=== PATIENT | male | born 1940 | race Caucasian/White ===

== ENCOUNTER 2021-12-22 19:38 | Inpatient (IN) | payer BC, MEDICARE ==
[~2021-12-22] VITALS: Ht 185.4 cm; Wt 155.9 kg
[2021-12-22] MEDS: SODIUM CHLORIDE 0.9% 1000ML 1,000 ML IV SCH (01:15)
[~2021-12-22 19:38] MED LIST: ACTOS15 MG PO; ASPIR 8181 MG PO; ESIDRIX25 MG PO; GLIPIZIDE5 MG PO; LANTUS100 UNITS/ SQ; METFORMIN HCL500 MG PO; TUMS200 MG PO; ZESTRIL20 MG PO
[2021-12-22 20:18] LABS: BASOPHILS # (AUTO) 0.1 (0.0-0.1); BASOPHILS % 0.5 % (0.0-1.0); EOSINOPHILS # (AUTO) 0.2 (0.0-0.4); EOSINOPHILS % 1.7 % (0.0-6.0); HEMATOCRIT 34.4 % (38.2-49.6); HEMOGLOBIN 11.3 g/dL (14.0-18.0); LYMPHOCYTES # (AUTO) 1.9 (1.0-3.2); LYMPHOCYTES % 15.3 % (18.0-39.1); MEAN CORPUSCULAR HEMOGLOBIN 30.2 pg (28-32); MEAN CORPUSCULAR HGB CONC 32.8 g/dL (31-35); MONOCYTES # (AUTO) 1.1 (0.2-0.8); MONOCYTES % 8.9 % (4.4-11.3); NEUTROPHILS # (AUTO) 9.2 (2.1-6.9); NEUTROPHILS % 71.9 % (38.7-80.0); PLATELET COUNT 239 x10e3/uL (140-360); RED BLOOD COUNT 3.74 x10e6/uL (4.3-5.7); RED CELL DISTRIBUTION WIDTH 12.2 % (11.7-14.4)
[2021-12-22 20:28] LABS: INR 1.01; PROTHROMBIN TIME 14.2 seconds (11.9-14.5)
[2021-12-22 20:29] LABS: PARTIAL THROMBOPLASTIN TIME 27.4 seconds (23.8-35.5)
[2021-12-22] MEDS ORDERED: SODIUM CHLORIDE 0.9% 1000ML 1,000 ML IV ONE ×2 (20:30)
[2021-12-22] MEDS ORDERED: SODIUM CHLORIDE 0.9% 1000ML 1,000 ML IV STA ×2 (20:37)
[2021-12-22] MEDS ORDERED: SODIUM CHLORIDE 0.9% 1000ML 3,000 ML ONE (20:37)
[2021-12-22 20:44] LABS: CREATINE KINASE MB 2.4 ng/mL (0-5.0)
[2021-12-22 20:46] LABS: ALBUMIN 3.2 g/dL (3.5-5.0); ALBUMIN/GLOBULIN RATIO 1.1 (0.8-2.0); ANION GAP 17.7 mmol/L (8-16); CALCIUM 9.1 mg/dL (8.4-10.2); CREATININE, SERUM 2.4 mg/dL (0.72-1.25); POTASSIUM 4.7 mmol/L (3.5-5.1)
[2021-12-22 22:19] LABS: CLARITY,URINE CLEAR (CLEAR); COLOR,URINE YELLOW (YELLOW); KETONES,URINE NEGATIVE (NEGATIVE); LEUKOCYTE ESTERASE ,URINE NEGATIVE (NEGATIVE); NITRITE,URINE NEGATIVE (NEGATIVE); PROTEIN,URINE DIPSTICK NEGATIVE (NEGATIVE); URINE UROBILINOGEN 0.2 mg/dL (0.2 - 1)
[2021-12-22 22:26] LABS: BACTERIA,URINE FEW /HPF; EPITHELIAL CELLS,URINE FEW /LPF; RBC,URINE 0-5 /HPF (0-5)
[2021-12-22 23:22] LABS: ANION GAP 13.1 mmol/L (8-16); CALCIUM 8.1 mg/dL (8.4-10.2); CREATININE, SERUM 2.14 mg/dL (0.72-1.25); POTASSIUM 5.1 mmol/L (3.5-5.1)
[2021-12-23] VITALS (22 sets, daily range): BP systolic 61–144; BP diastolic 27–91
[2021-12-23] MEDS ORDERED: GLIPIZIDE ER5 MG PO (02:09)
[2021-12-23] MEDS ORDERED: LEVEMIR FL100 UNIT/1 SC (02:09)
[2021-12-23] MEDS ORDERED: LISINOPRIL-HCT1 EACH PO (02:09)
[2021-12-23 07:34] LABS: BASOPHILS # (AUTO) 0.1 (0.0-0.1); BASOPHILS % 0.5 % (0.0-1.0); EOSINOPHILS # (AUTO) 0.2 (0.0-0.4); EOSINOPHILS % 1.6 % (0.0-6.0); LYMPHOCYTES # (AUTO) 3.6 (1.0-3.2); MEAN CORPUSCULAR HEMOGLOBIN 30.6 pg (28-32); MEAN CORPUSCULAR HGB CONC 33.3 g/dL (31-35); MEAN CORPUSCULAR VOLUME 91.8 fL (81-99); MONOCYTES # (AUTO) 1.2 (0.2-0.8); MONOCYTES % 9.4 % (4.4-11.3); NEUTROPHILS # (AUTO) 7.9 (2.1-6.9); NEUTROPHILS % 59.6 % (38.7-80.0); PLATELET COUNT 228 x10e3/uL (140-360); RED BLOOD COUNT 2.94 x10e6/uL (4.3-5.7); RED CELL DISTRIBUTION WIDTH 12.2 % (11.7-14.4)
[2021-12-23] MEDS: SODIUM CHLORIDE 0.9% 1000ML 1,000 ML IV SCH (07:45)
[2021-12-23 08:02] LABS: ANION GAP 15.7 mmol/L (8-16); CALCIUM 8.2 mg/dL (8.4-10.2); CREATININE, SERUM 2.14 mg/dL (0.72-1.25); POTASSIUM 4.7 mmol/L (3.5-5.1)
[2021-12-23] MEDS ORDERED: ONDANSETRON HCL INJ 2MG/ML 2ML 2 MG/ML VIAL IV PRN (08:15)
[2021-12-23] MEDS ORDERED: HYDROMORPHONE 1MG/1ML INJ IV STA ×2 (09:45→09:58)
[2021-12-23] MEDS ORDERED: SODIUM CHLORIDE 0.9% 50ML 50 ML ONE (09:59)
[2021-12-23] MEDS: Pantoprazole IV 40 MG in SODIUM CHLORIDE 0.9% 50ML 50 ML IV SCH ×3 (10:00→22:44)
[2021-12-23] MEDS ORDERED: HYDROMORPHONE 1MG/1ML INJ ONE ×2 (10:03→10:12)
[2021-12-23] MEDS ORDERED: SODIUM CHLORIDE 0.9% 250ML 250 ML IV ONE (10:05)
[2021-12-23] MEDS ORDERED: METOCLOPRAMIDE HCL 10 MG/2ML VIAL IV ONE (10:05)
[2021-12-23] MEDS ORDERED: PROMETHAZINE 12.5MG/ NACL 0.9% 12.5 MG/50 ML BAG IV ONE (10:05)
[2021-12-23] MEDS ORDERED: VASOPRESSIN 60 UNIT in DEXTROSE 5% 50ML 57 ML IV PRN (10:15)
[2021-12-23] MEDS: OCTREOTIDE ACETATE 500 MCG in SODIUM CHLORIDE 0.9% 250ML 249 ML IV SCH ×2 (10:15→22:44)
[2021-12-23] MEDS ORDERED: DEXTROSE 50% SYRINGE 50 ML IV PRN ×2 (10:30→11:15)
[2021-12-23] MEDS ORDERED: ACETAMINOPHEN 325 MG TAB PO PRN (10:30)
[2021-12-23] MEDS ORDERED: SODIUM BICARBONATE 8.4% INJ 50 ML SYR IV STA (11:01)
[2021-12-23 11:02] LABS: ABG HCO3 9 mmol/L (22-26); ABG PCO2 33 mmHg (35-45); ABG PH 7.06 (7.35-7.45); ABG PO2 105 mmHg (80-105); ABG TCO2 10
[2021-12-23] MEDS ORDERED: SODIUM BICARBONATE 8.4% 50 ML VIAL IV STA (11:02)
[2021-12-23] MEDS ORDERED: SODIUM BICARBONATE 8.4% SYRING 100 ML ONE (11:14)
[2021-12-23 11:16] LABS: BASOPHILS # (AUTO) 0.1 (0.0-0.1); BASOPHILS % 0.3 % (0.0-1.0); EOSINOPHILS # (AUTO) 0.1 (0.0-0.4); EOSINOPHILS % 0.3 % (0.0-6.0); LYMPHOCYTES # (AUTO) 2.9 (1.0-3.2); LYMPHOCYTES % 16.3 % (18.0-39.1); MEAN CORPUSCULAR HEMOGLOBIN 30.2 pg (28-32); MEAN CORPUSCULAR HGB CONC 31.8 g/dL (31-35); MEAN CORPUSCULAR VOLUME 94.7 fL (81-99); MONOCYTES # (AUTO) 1.5 (0.2-0.8); MONOCYTES % 8.4 % (4.4-11.3); NEUTROPHILS # (AUTO) 12.5 (2.1-6.9); NEUTROPHILS % 69.2 % (38.7-80.0); PLATELET COUNT 195 x10e3/uL (140-360); RED BLOOD COUNT 1.89 x10e6/uL (4.3-5.7); RED CELL DISTRIBUTION WIDTH 12.3 % (11.7-14.4)
[2021-12-23 11:17] LABS: HEMATOCRIT 17.9 % (38.2-49.6); HEMOGLOBIN 5.7 g/dL (14.0-18.0)
[2021-12-23] MEDS ORDERED: INSULIN REGULAR, HUMAN 100 UNIT/1 ML SQ SCH (11:30)
[2021-12-23] MEDS: METOCLOPRAMIDE HCL 10 MG/2ML VIAL IV SCH ×3 (12:00→23:31)
[2021-12-23] MEDS ORDERED: SODIUM BICARBONATE 8.4% SYRING 150 ML in DEXTROSE 5% 1,000 ML IV SCH (12:30)
[2021-12-23] MEDS: INSULIN REGULAR, HUMAN 3ML VL 100 UNIT in SODIUM CHLORIDE 0.9% 100 ML IV SCH ×2 (13:26)
[2021-12-23 16:05] LABS: BASOPHILS % 0.1 % (0.0-1.0); HEMATOCRIT 24.1 % (38.2-49.6); HEMOGLOBIN 7.9 g/dL (14.0-18.0); LYMPHOCYTES # (AUTO) 0.6 (1.0-3.2); LYMPHOCYTES % 2.8 % (18.0-39.1); MEAN CORPUSCULAR HEMOGLOBIN 29.9 pg (28-32); MEAN CORPUSCULAR HGB CONC 32.8 g/dL (31-35); MEAN CORPUSCULAR VOLUME 91.3 fL (81-99); MONOCYTES # (AUTO) 1.6 (0.2-0.8); MONOCYTES % 7.9 % (4.4-11.3); NEUTROPHILS # (AUTO) 17.4 (2.1-6.9); NEUTROPHILS % 87.2 % (38.7-80.0); PLATELET COUNT 178 x10e3/uL (140-360); RED BLOOD COUNT 2.64 x10e6/uL (4.3-5.7); RED CELL DISTRIBUTION WIDTH 12.8 % (11.7-14.4)
[2021-12-23] MEDS ORDERED: ALBUMIN 25% 12.5GM 0.25 GM/ML BTL IV ONE (16:30)
[2021-12-23] MEDS ORDERED: ALBUMIN 25% 25GM 100ML 200 ML IV ONE (16:45)
[2021-12-23] MEDS: SODIUM BICARBONATE 8.4% SYRING 150 ML in STERILE WATER IV SOLN 1,000 ML IV SCH (17:09)
[2021-12-23] MEDS ORDERED: DEXTROSE 5% 50ML 50 ML IV ONE (17:49)
[2021-12-23 17:52] LABS: ALBUMIN 2.8 g/dL (3.5-5.0); ALBUMIN/GLOBULIN RATIO 1.5 (0.8-2.0); ANION GAP 15.2 mmol/L (8-16); CALCIUM 7.5 mg/dL (8.4-10.2); CREATININE, SERUM 2.39 mg/dL (0.72-1.25)
[2021-12-23 18:10] LABS: POTASSIUM 6.2 mmol/L (3.5-5.1)
[2021-12-23] MEDS ORDERED: LACTULOSE SYRUP 20 GM/30 ML UDC PO PRN ×2 (18:30→18:45)
[2021-12-23] MEDS ORDERED: CALCIUM GLUC 1 G/50 ML NACL 50 ML IV ONE (18:45)
[2021-12-23] MEDS ORDERED: CALCIUM GLUCONATE 10% INJ 4.65 MEQ in SODIUM CHLORIDE 0.9% 50ML 50 ML IV ONE (18:45)
[2021-12-23] MEDS ORDERED: INSULIN REGULAR, HUMAN 100 UNIT/1 ML IV ONE (19:00)
[2021-12-23] MEDS ORDERED: SOD POLYSTYRENE SULFONATE SUSP 15 GM/60 ML BTL PO ONE (19:00)
[2021-12-23] MEDS ORDERED: DEXTROSE 50% SYRINGE 50 ML IV ONE (19:00)
[2021-12-23 20:19] LABS: BASOPHILS % 0.1 % (0.0-1.0); HEMATOCRIT 21.3 % (38.2-49.6); HEMOGLOBIN 7.2 g/dL (14.0-18.0); LYMPHOCYTES % 6.1 % (18.0-39.1); MEAN CORPUSCULAR HEMOGLOBIN 30.4 pg (28-32); MEAN CORPUSCULAR HGB CONC 33.8 g/dL (31-35); MEAN CORPUSCULAR VOLUME 89.9 fL (81-99); MONOCYTES # (AUTO) 1.3 (0.2-0.8); MONOCYTES % 8.2 % (4.4-11.3); NEUTROPHILS # (AUTO) 13.2 (2.1-6.9); NEUTROPHILS % 83.8 % (38.7-80.0); PLATELET COUNT 156 x10e3/uL (140-360); RED BLOOD COUNT 2.37 x10e6/uL (4.3-5.7); RED CELL DISTRIBUTION WIDTH 12.8 % (11.7-14.4)
[2021-12-23] MEDS ORDERED: NON-FORMULARY MEDICATION (Insulin Detemir (Levemir Flextouch) 10 UNITS) SC SCH (21:00)
[2021-12-23] MEDS ORDERED: INSULIN GLARGINE 100 UNITS/ML VIAL SQ SCH (21:00)
[2021-12-23] MEDS ORDERED: SODIUM CHLORIDE 0.9% 250ML 250 ML ONE (22:50)
[2021-12-24] VITALS (25 sets, daily range): BP systolic 92–133; BP diastolic 46–79
[2021-12-24] MEDS: SODIUM BICARBONATE 8.4% SYRING 150 ML in STERILE WATER IV SOLN 1,000 ML IV SCH (04:12)
[2021-12-24] MEDS: Pantoprazole IV 40 MG in SODIUM CHLORIDE 0.9% 50ML 50 ML IV SCH ×5 (04:12→21:49)
[2021-12-24 05:10] LABS: BASOPHILS % 0.1 % (0.0-1.0); HEMATOCRIT 22.9 % (38.2-49.6); HEMOGLOBIN 7.8 g/dL (14.0-18.0); LYMPHOCYTES # (AUTO) 0.9 (1.0-3.2); LYMPHOCYTES % 6.5 % (18.0-39.1); MEAN CORPUSCULAR HEMOGLOBIN 30.1 pg (28-32); MEAN CORPUSCULAR HGB CONC 34.1 g/dL (31-35); MEAN CORPUSCULAR VOLUME 88.4 fL (81-99); MONOCYTES # (AUTO) 1.3 (0.2-0.8); MONOCYTES % 9.7 % (4.4-11.3); NEUTROPHILS # (AUTO) 11.2 (2.1-6.9); NEUTROPHILS % 82.4 % (38.7-80.0); PLATELET COUNT 151 x10e3/uL (140-360); RED BLOOD COUNT 2.59 x10e6/uL (4.3-5.7); RED CELL DISTRIBUTION WIDTH 13.1 % (11.7-14.4)
[2021-12-24 05:31] LABS: ALBUMIN 3.3 g/dL (3.5-5.0); ALBUMIN/GLOBULIN RATIO 1.8 (0.8-2.0); ANION GAP 11.1 mmol/L (8-16); CALCIUM 8.3 mg/dL (8.4-10.2); CREATININE, SERUM 1.77 mg/dL (0.72-1.25); POTASSIUM 4.1 mmol/L (3.5-5.1)
[2021-12-24] MEDS: INSULIN REGULAR, HUMAN 3ML VL 100 UNIT in SODIUM CHLORIDE 0.9% 100 ML IV SCH ×6 (05:55→21:47)
[2021-12-24] MEDS: OCTREOTIDE ACETATE 500 MCG in SODIUM CHLORIDE 0.9% 250ML 249 ML IV SCH ×2 (06:08→15:39)
[2021-12-24] MEDS: METOCLOPRAMIDE HCL 10 MG/2ML VIAL IV SCH ×3 (06:08→16:59)
[2021-12-24] MEDS ORDERED: SODIUM CHLORIDE 0.9% 250ML 250 ML ONE (07:43)
[2021-12-24] MEDS: DEXTROSE 5%/0.45% SOD CHL 1,000 ML IV SCH (10:13)
[2021-12-24] MEDS ORDERED: LACTATED RINGER'S 1,000 ML ONE (10:50)
[2021-12-24] MEDS ORDERED: EPHEDRINE SULFATE INJ 50 MG/ML VIAL ONE (12:46)
[2021-12-24] MEDS ORDERED: LIDOCAINE HCL 2% LOCAL INJ 5 ML SDV VIAL INJ ONE (12:46)
[2021-12-24] MEDS ORDERED: MIDAZOLAM HCL 2 MG/2 ML VIAL ONE (13:15)
[2021-12-24] MEDS ORDERED: FENTANYL CITRATE/PF 100MCG/2 ML INJ ONE (13:15)
[2021-12-24] MEDS ORDERED: DEXTROSE 50% SYRINGE 50 ML IV PRN (14:00)
[2021-12-24 14:32] LABS: FREE T4 (FREE THYROXINE) 0.78 ng/dL (0.8-1.8); THYROID STIMULATING HORMONE 0.339 uIU/mL (0.350-4.940)
[2021-12-24 15:04] LABS: CREATININE,URINE RANDOM 52.85 mg/dL (63-166)
[2021-12-24 15:07] LABS: TOTAL PROTEIN, URINE < 6.8 mg/dL (1-14)
[2021-12-24] MEDS ORDERED: CEPACOL SORE THROAT LOZENGES PO PRN (17:30)
[2021-12-24] MEDS: INSULIN GLARGINE 100 UNITS/ML VIAL SQ SCH (21:54)
[2021-12-25] VITALS (26 sets, daily range): BP systolic 85–154; BP diastolic 42–75
[2021-12-25] MEDS: METOCLOPRAMIDE HCL 10 MG/2ML VIAL IV SCH ×4 (00:17→17:09)
[2021-12-25] MEDS: DEXTROSE 5%/0.45% SOD CHL 1,000 ML IV SCH ×2 (00:20→13:48)
[2021-12-25] MEDS: INSULIN REGULAR, HUMAN 3ML VL 100 UNIT in SODIUM CHLORIDE 0.9% 100 ML IV SCH ×4 (01:22→05:10)
[2021-12-25] MEDS: Pantoprazole IV 40 MG in SODIUM CHLORIDE 0.9% 50ML 50 ML IV SCH ×5 (02:30→22:32)
[2021-12-25] MEDS: OCTREOTIDE ACETATE 500 MCG in SODIUM CHLORIDE 0.9% 250ML 249 ML IV SCH ×2 (03:00→14:16)
[2021-12-25 06:07] LABS: BASOPHILS % 0.3 % (0.0-1.0); EOSINOPHILS # (AUTO) 0.3 (0.0-0.4); EOSINOPHILS % 2.9 % (0.0-6.0); HEMATOCRIT 22.1 % (38.2-49.6); HEMOGLOBIN 7.1 g/dL (14.0-18.0); LYMPHOCYTES # (AUTO) 1.1 (1.0-3.2); LYMPHOCYTES % 12.8 % (18.0-39.1); MEAN CORPUSCULAR HGB CONC 32.1 g/dL (31-35); MEAN CORPUSCULAR VOLUME 93.2 fL (81-99); MONOCYTES % 11.3 % (4.4-11.3); NEUTROPHILS # (AUTO) 6.2 (2.1-6.9); NEUTROPHILS % 71.7 % (38.7-80.0); PLATELET COUNT 178 x10e3/uL (140-360); RED BLOOD COUNT 2.37 x10e6/uL (4.3-5.7); RED CELL DISTRIBUTION WIDTH 14.1 % (11.7-14.4)
[2021-12-25 06:29] LABS: CREATININE, SERUM 1.38 mg/dL (0.72-1.25)
[2021-12-25] MEDS ORDERED: SODIUM CHLORIDE 0.9% 250ML 250 ML IV ONE (08:45)
[2021-12-25] MEDS: INSULIN GLARGINE 100 UNITS/ML VIAL SQ SCH (20:58)
[2021-12-26] VITALS (17 sets, daily range): BP systolic 124–165; BP diastolic 51–77
[2021-12-26] MEDS: METOCLOPRAMIDE HCL 10 MG/2ML VIAL IV SCH ×5 (00:37→23:31)
[2021-12-26] MEDS: DEXTROSE 5%/0.45% SOD CHL 1,000 ML IV SCH (05:25)
[2021-12-26 05:26] LABS: BASOPHILS % 0.4 % (0.0-1.0); EOSINOPHILS # (AUTO) 0.3 (0.0-0.4); EOSINOPHILS % 4.4 % (0.0-6.0); HEMATOCRIT 23.2 % (38.2-49.6); HEMOGLOBIN 7.6 g/dL (14.0-18.0); LYMPHOCYTES # (AUTO) 1.1 (1.0-3.2); MEAN CORPUSCULAR HEMOGLOBIN 30.3 pg (28-32); MEAN CORPUSCULAR HGB CONC 32.8 g/dL (31-35); MEAN CORPUSCULAR VOLUME 92.4 fL (81-99); MONOCYTES # (AUTO) 0.8 (0.2-0.8); MONOCYTES % 11.1 % (4.4-11.3); NEUTROPHILS # (AUTO) 5.1 (2.1-6.9); NEUTROPHILS % 68.2 % (38.7-80.0); PLATELET COUNT 168 x10e3/uL (140-360); RED BLOOD COUNT 2.51 x10e6/uL (4.3-5.7); RED CELL DISTRIBUTION WIDTH 14.6 % (11.7-14.4)
[2021-12-26 05:37] LABS: ANION GAP 10.1 mmol/L (8-16); CALCIUM 7.9 mg/dL (8.4-10.2); CREATININE, SERUM 1.24 mg/dL (0.72-1.25); POTASSIUM 4.1 mmol/L (3.5-5.1)
[2021-12-26] MEDS: INSULIN REGULAR, HUMAN 3ML VL 100 UNIT in SODIUM CHLORIDE 0.9% 100 ML IV SCH ×2 (11:50)
[2021-12-26] MEDS ORDERED: INSULIN LISPRO 100 UNIT/1 ML 3ML VIAL SQ ONE ×2 (12:28→16:30)
[2021-12-26] MEDS ORDERED: DEXTROSE 50% SYRINGE 50 ML IV PRN (16:45)
[2021-12-26] MEDS ORDERED: FUROSEMIDE INJ 10 MG/ML 2 ML VIAL IV ONE (19:45)
[2021-12-26] MEDS ORDERED: INSULIN GLARGINE 100 UNITS/ML VIAL SQ SCH (21:00)
[2021-12-26] MEDS: INSULIN LISPRO 100 UNIT/1 ML 3ML VIAL SQ SCH (21:00)
[2021-12-26] MEDS ORDERED: BISACODYL 5 MG TAB EC PO ONE (23:30)
[2021-12-27] VITALS (8 sets, daily range): BP systolic 112–152; BP diastolic 42–86
[2021-12-27] MEDS ORDERED: BISACODYL 5 MG TAB EC PO ONE
[2021-12-27 04:50] LABS: BASOPHILS % 0.5 % (0.0-1.0); EOSINOPHILS # (AUTO) 0.3 (0.0-0.4); EOSINOPHILS % 2.9 % (0.0-6.0); HEMATOCRIT 24.4 % (38.2-49.6); HEMOGLOBIN 7.9 g/dL (14.0-18.0); LYMPHOCYTES # (AUTO) 1.3 (1.0-3.2); LYMPHOCYTES % 14.7 % (18.0-39.1); MEAN CORPUSCULAR HEMOGLOBIN 29.7 pg (28-32); MEAN CORPUSCULAR HGB CONC 32.4 g/dL (31-35); MEAN CORPUSCULAR VOLUME 91.7 fL (81-99); MONOCYTES # (AUTO) 0.8 (0.2-0.8); MONOCYTES % 9.6 % (4.4-11.3); NEUTROPHILS # (AUTO) 6.1 (2.1-6.9); PLATELET COUNT 231 x10e3/uL (140-360); RED BLOOD COUNT 2.66 x10e6/uL (4.3-5.7); RED CELL DISTRIBUTION WIDTH 14.2 % (11.7-14.4)
[2021-12-27] MEDS ORDERED: CITRATE OF MAGNESIA 300ML BOTTLE PO ONE ×2 (05:00→07:00)
[2021-12-27 05:07] LABS: ANION GAP 10.9 mmol/L (8-16); CALCIUM 8.3 mg/dL (8.4-10.2); CREATININE, SERUM 1.28 mg/dL (0.72-1.25); POTASSIUM 3.9 mmol/L (3.5-5.1)
[2021-12-27] MEDS: METOCLOPRAMIDE HCL 10 MG/2ML VIAL IV SCH ×3 (05:19→18:06)
[2021-12-27] MEDS: INSULIN LISPRO 100 UNIT/1 ML 3ML VIAL SQ SCH ×4 (07:30→20:16)
[2021-12-27] MEDS ORDERED: GLUCAGON FOR INJ 1 MG VIAL ONE (13:01)
[2021-12-27] MEDS ORDERED: EPHEDRINE SULFATE INJ 50 MG/ML VIAL ONE (13:01)
[2021-12-27] MEDS ORDERED: PROPOFOL IV EMULSION 10 MG/ML 20 ML VIAL ONE (13:01)
[2021-12-27] MEDS ORDERED: HYOSCYAMINE SULFATE 0.5 MG/ML INJ ONE (13:01)
[2021-12-27] MEDS ORDERED: LIDOCAINE HCL 2% LOCAL INJ 5 ML SDV VIAL INJ ONE (13:01)
[2021-12-27] MEDS ORDERED: FENTANYL CITRATE/PF 100MCG/2 ML INJ ONE (13:22)
[2021-12-27] MEDS ORDERED: INSULIN GLARGINE 100 UNITS/ML VIAL SQ SCH (21:00)
[2021-12-28 00:22] VITALS: BP 126/61
[2021-12-28 05:13] LABS: BASOPHILS % 0.4 % (0.0-1.0); EOSINOPHILS # (AUTO) 0.3 (0.0-0.4); HEMATOCRIT 25.4 % (38.2-49.6); HEMOGLOBIN 8.3 g/dL (14.0-18.0); LYMPHOCYTES # (AUTO) 1.3 (1.0-3.2); LYMPHOCYTES % 14.1 % (18.0-39.1); MEAN CORPUSCULAR HEMOGLOBIN 30.4 pg (28-32); MEAN CORPUSCULAR HGB CONC 32.7 g/dL (31-35); MONOCYTES # (AUTO) 0.9 (0.2-0.8); MONOCYTES % 9.3 % (4.4-11.3); NEUTROPHILS # (AUTO) 6.7 (2.1-6.9); NEUTROPHILS % 71.9 % (38.7-80.0); PLATELET COUNT 202 x10e3/uL (140-360); RED BLOOD COUNT 2.73 x10e6/uL (4.3-5.7); RED CELL DISTRIBUTION WIDTH 14.3 % (11.7-14.4)
[2021-12-28 05:32] LABS: ANION GAP 11.7 mmol/L (8-16); CALCIUM 8.5 mg/dL (8.4-10.2); CREATININE, SERUM 1.4 mg/dL (0.72-1.25); POTASSIUM 3.7 mmol/L (3.5-5.1)
[2021-12-28] MEDS: METOCLOPRAMIDE HCL 10 MG/2ML VIAL IV SCH ×3 (06:33→12:00)
[2021-12-28] MEDS: INSULIN LISPRO 100 UNIT/1 ML 3ML VIAL SQ SCH ×2 (07:30→11:30)
[2021-12-28 07:55] VITALS: BP 139/71
[2021-12-28 08:06] VITALS: BP 139/71
[2021-12-28 16:09] VITALS: BP 153/87
[2021-12-28] MEDS ORDERED: ONDANSETRON HCL 4 MG ORAL DISINTEGRATING TAB PO PRN (16:15)
== END 2021-12-28 17:48 | disposition home or self-care (01) | DRG 377 ==
LOC: ER 19:51 → ERHOLD 23:32 → MED/SURG2 12-23 00:44 → ICU 12-23 12:51 → MED/SURG2 12-26 13:37
PROVIDERS: ADMIT Internal Medicine; ATTEND Internal Medicine
PROC: 02HV33Z Insertion of Infusion Device into Superior Vena Cava, Percutaneous Approach (ICD-10-PCS; principal; 2021-12-23)
PROC: 3E043XZ Introduction of Vasopressor into Central Vein, Percutaneous Approach (ICD-10-PCS; 2021-12-23)
PROC: 0DJ08ZZ Inspection of Upper Intestinal Tract, Via Natural or Artificial Opening Endoscopic (ICD-10-PCS; 2021-12-24)
PROC: 0DBH8ZZ Excision of Cecum, Via Natural or Artificial Opening Endoscopic (ICD-10-PCS; 2021-12-27 12:30)
PROC: 0DBL8ZZ Excision of Transverse Colon, Via Natural or Artificial Opening Endoscopic (ICD-10-PCS; 2021-12-27 12:30)
DX: K57.31 Diverticulosis of large intestine without perforation or abscess with bleeding (principal); R57.1 Hypovolemic shock; E11.10 Type 2 diabetes mellitus with ketoacidosis without coma; D62 Acute posthemorrhagic anemia; N17.9 Acute kidney failure, unspecified; Z68.42 Body mass index [BMI] 45.0-49.9, adult; E87.0 Hyperosmolality and hypernatremia; K29.71 Gastritis, unspecified, with bleeding; E87.5 Hyperkalemia; E11.22 Type 2 diabetes mellitus with diabetic chronic kidney disease; I12.9 Hypertensive chronic kidney disease with stage 1 through stage 4 chronic kidney disease, or unspecified chronic kidney disease; E66.01 Morbid (severe) obesity due to excess calories; Z90.79 Acquired absence of other genital organ(s); Z85.46 Personal history of malignant neoplasm of prostate; Z79.899 Other long term (current) drug therapy; K63.5 Polyp of colon; K64.8 Other hemorrhoids; K29.70 Gastritis, unspecified, without bleeding; K44.9 Diaphragmatic hernia without obstruction or gangrene; N18.32 Chronic kidney disease, stage 3b; D69.6 Thrombocytopenia, unspecified
CPT/HCPCS: 36415; 43235; 45378; 45380; 45385; 70450; 71045; 74250; 76770; 80048; 80053; 81001; 82550; 82553; 82570; 82805; 82948; 83036; 84156; 84439; 84443; 84484; 85025; 85610; 85730; 86850; 86900; 86920; 88305; 93005; 94799; 99251; 99284; J1170; J1610; J1815; J1817; J1940; J1980; J2001; J2250; J2353; J2405; J2550; J2765; J3010; J7030; J7050; J7070; J7121; J7799; P9016; P9034; P9047; U0002

== ENCOUNTER 2022-07-07 09:17 | Inpatient (IN) | payer MEDICARE ==
[~2022-07-07] VITALS: Ht 185.4 cm; Wt 155.6 kg
[~2022-07-07 09:17] MED LIST changes: +GLIPIZIDE ER5 MG PO; +LEVEMIR FL100 UNIT/1 SC; +LISINOPRIL-HCT1 EACH PO
[2022-07-07 10:02] LABS: BASOPHILS % 0.5 % (0.0-1.0); EOSINOPHILS # (AUTO) 0.3 (0.0-0.4); EOSINOPHILS % 3.1 % (0.0-6.0); HEMATOCRIT 42.6 % (38.2-49.6); HEMOGLOBIN 13.4 g/dL (14.0-18.0); LYMPHOCYTES # (AUTO) 1.8 (1.0-3.2); MEAN CORPUSCULAR HEMOGLOBIN 28.8 pg (28-32); MEAN CORPUSCULAR HGB CONC 31.5 g/dL (31-35); MEAN CORPUSCULAR VOLUME 91.4 fL (81-99); MONOCYTES # (AUTO) 0.8 (0.2-0.8); MONOCYTES % 8.9 % (4.4-11.3); NEUTROPHILS # (AUTO) 5.8 (2.1-6.9); NEUTROPHILS % 66.7 % (38.7-80.0); PLATELET COUNT 174 x10e3/uL (140-360); RED BLOOD COUNT 4.66 x10e6/uL (4.3-5.7); RED CELL DISTRIBUTION WIDTH 16.1 % (11.7-14.4)
[2022-07-07 10:17] LABS: INR 1.12; PROTHROMBIN TIME 15.4 seconds (11.9-14.5)
[2022-07-07 10:18] LABS: PARTIAL THROMBOPLASTIN TIME 28.1 seconds (23.8-35.5)
[2022-07-07 10:28] LABS: ALBUMIN 3.9 g/dL (3.5-5.0); ALBUMIN/GLOBULIN RATIO 1.1 (0.8-2.0); ANION GAP 16.2 mmol/L (8-16); CALCIUM 9.1 mg/dL (8.4-10.2); POTASSIUM 4.2 mmol/L (3.5-5.1)
[2022-07-07] MEDS ORDERED: ONDANSETRON HCL INJ 2MG/ML 2ML 2 MG/ML VIAL IV PRN (11:15)
[2022-07-07] MEDS ORDERED: HEPARIN SOD (PORCINE) 5,000 UNIT/ML VIAL IV ONE (11:15)
[2022-07-07] MEDS ORDERED: Morphine 4mg INJECTION 4 MG/ML INJ IV PRN (11:15)
[2022-07-07] MEDS ORDERED: HEPARIN 25,000 UNIT 1,500 UNIT in DEXTROSE 5% 250ML 250 ML IV SCH (11:30)
[2022-07-07] MEDS ORDERED: HEPARIN 25,000 UNIT DRIP IV ONE (11:43)
[2022-07-07] MEDS ORDERED: ACETAMINOPHEN 325 MG TAB PO PRN (11:45)
[2022-07-07] MEDS ORDERED: DEXTROSE 50% SYRINGE 50 ML IV PRN (11:45)
[2022-07-07] MEDS: SODIUM CHLORIDE 0.9% 1000ML 1,000 ML IV SCH (12:30)
[2022-07-07] MEDS: ENOXAPARIN SODIUM INJ 100 MG/ML SYR SC SCH (13:16)
[2022-07-07 16:10] VITALS: BP 109/71
[2022-07-07] MEDS: HYDRALAZINE HCL 25 MG TAB PO SCH (17:00)
[2022-07-07] MEDS: INSULIN REGULAR, HUMAN 100 UNIT/1 ML SQ SCH ×2 (17:10→21:53)
[2022-07-07 17:29] VITALS: BP 109/71
[2022-07-07 19:16] LABS: CREATINE KINASE 81 IU/L (30-200)
[2022-07-07 19:47] LABS: % IRON SATURATION 27 % (15-50); IRON 102 ug/dL (65-175); TOTAL IRON BINDING CAPACITY 382 ug/dL (261-478); TRANSFERRIN 273 mg/dL (174-364)
[2022-07-07 20:22] VITALS: BP 109/71
[2022-07-07 21:41] VITALS: BP 113/57
[2022-07-07] MEDS: INSULIN GLARGINE 100 UNITS/ML VIAL SQ SCH (21:55)
[2022-07-08] VITALS (9 sets, daily range): BP systolic 112–139; BP diastolic 53–76
[2022-07-08 06:09] LABS: BASOPHILS % 0.3 % (0.0-1.0); EOSINOPHILS # (AUTO) 0.3 (0.0-0.4); HEMATOCRIT 41.1 % (38.2-49.6); HEMOGLOBIN 12.8 g/dL (14.0-18.0); LYMPHOCYTES # (AUTO) 1.4 (1.0-3.2); LYMPHOCYTES % 15.2 % (18.0-39.1); MEAN CORPUSCULAR HGB CONC 31.1 g/dL (31-35); MEAN CORPUSCULAR VOLUME 93.2 fL (81-99); MONOCYTES # (AUTO) 1.1 (0.2-0.8); MONOCYTES % 12.7 % (4.4-11.3); NEUTROPHILS # (AUTO) 6.1 (2.1-6.9); NEUTROPHILS % 67.9 % (38.7-80.0); PLATELET COUNT 161 x10e3/uL (140-360); RED BLOOD COUNT 4.41 x10e6/uL (4.3-5.7); RED CELL DISTRIBUTION WIDTH 15.9 % (11.7-14.4)
[2022-07-08 06:30] LABS: ALBUMIN 3.5 g/dL (3.5-5.0); ALBUMIN/GLOBULIN RATIO 1.1 (0.8-2.0); ANION GAP 18.1 mmol/L (8-16); CALCIUM 8.9 mg/dL (8.4-10.2); CREATININE, SERUM 1.62 mg/dL (0.72-1.25); POTASSIUM 4.1 mmol/L (3.5-5.1)
[2022-07-08 07:16] LABS: CREATINE KINASE 84 IU/L (30-200)
[2022-07-08] MEDS: INSULIN REGULAR, HUMAN 100 UNIT/1 ML SQ SCH ×4 (07:22→21:58)
[2022-07-08] MEDS: FAMOTIDINE 20 MG TAB PO SCH (08:46)
[2022-07-08] MEDS: HYDRALAZINE HCL 25 MG TAB PO SCH (08:46)
[2022-07-08] MEDS: SODIUM CHLORIDE 0.9% 1000ML 1,000 ML IV SCH (08:46)
[2022-07-08] MEDS ORDERED: LOSARTAN POTASSIUM 100 MG TAB PO SCH (09:00)
[2022-07-08] MEDS: ENOXAPARIN SODIUM INJ 100 MG/ML SYR SC SCH (12:25)
[2022-07-08] MEDS: APIXABAN 5 MG TABLET PO SCH (16:36)
[2022-07-08] MEDS: INSULIN GLARGINE 100 UNITS/ML VIAL SQ SCH (21:56)
[2022-07-09] VITALS (8 sets, daily range): BP systolic 121–151; BP diastolic 60–69
[2022-07-09 04:56] LABS: BASOPHILS % 0.5 % (0.0-1.0); EOSINOPHILS # (AUTO) 0.3 (0.0-0.4); EOSINOPHILS % 4.2 % (0.0-6.0); HEMATOCRIT 38.8 % (38.2-49.6); HEMOGLOBIN 12.6 g/dL (14.0-18.0); LYMPHOCYTES # (AUTO) 1.9 (1.0-3.2); LYMPHOCYTES % 24.4 % (18.0-39.1); MEAN CORPUSCULAR HEMOGLOBIN 29.1 pg (28-32); MEAN CORPUSCULAR HGB CONC 32.5 g/dL (31-35); MEAN CORPUSCULAR VOLUME 89.6 fL (81-99); MONOCYTES % 12.7 % (4.4-11.3); NEUTROPHILS # (AUTO) 4.4 (2.1-6.9); NEUTROPHILS % 57.4 % (38.7-80.0); PLATELET COUNT 158 x10e3/uL (140-360); RED BLOOD COUNT 4.33 x10e6/uL (4.3-5.7); RED CELL DISTRIBUTION WIDTH 15.5 % (11.7-14.4)
[2022-07-09 05:11] LABS: ANION GAP 13.9 mmol/L (8-16); CALCIUM 8.6 mg/dL (8.4-10.2); CREATININE, SERUM 1.45 mg/dL (0.72-1.25); POTASSIUM 3.9 mmol/L (3.5-5.1)
[2022-07-09] MEDS: INSULIN REGULAR, HUMAN 100 UNIT/1 ML SQ SCH ×4 (08:30→20:33)
[2022-07-09] MEDS: FAMOTIDINE 20 MG TAB PO SCH (10:26)
[2022-07-09] MEDS: APIXABAN 5 MG TABLET PO SCH ×2 (10:27→17:22)
[2022-07-09] MEDS ORDERED: SODIUM CHLORIDE 0.9% 1000ML 1,000 ML IV SCH (13:30)
[2022-07-09] MEDS: HYDRALAZINE HCL 25 MG TAB PO SCH (17:22)
[2022-07-09] MEDS: INSULIN GLARGINE 100 UNITS/ML VIAL SQ SCH (20:38)
[2022-07-10] VITALS: BP 118/51
[2022-07-10 04:00] VITALS: BP 112/44
[2022-07-10 06:34] LABS: BASOPHILS % 0.5 % (0.0-1.0); EOSINOPHILS # (AUTO) 0.3 (0.0-0.4); EOSINOPHILS % 3.8 % (0.0-6.0); HEMATOCRIT 38.3 % (38.2-49.6); HEMOGLOBIN 12.6 g/dL (14.0-18.0); LYMPHOCYTES # (AUTO) 1.5 (1.0-3.2); LYMPHOCYTES % 20.9 % (18.0-39.1); MEAN CORPUSCULAR HEMOGLOBIN 28.8 pg (28-32); MEAN CORPUSCULAR HGB CONC 32.9 g/dL (31-35); MEAN CORPUSCULAR VOLUME 87.4 fL (81-99); MONOCYTES # (AUTO) 0.8 (0.2-0.8); MONOCYTES % 10.8 % (4.4-11.3); NEUTROPHILS # (AUTO) 4.6 (2.1-6.9); NEUTROPHILS % 63.3 % (38.7-80.0); PLATELET COUNT 178 x10e3/uL (140-360); RED BLOOD COUNT 4.38 x10e6/uL (4.3-5.7); RED CELL DISTRIBUTION WIDTH 15.2 % (11.7-14.4)
[2022-07-10 06:52] LABS: ANION GAP 18.2 mmol/L (8-16); CALCIUM 8.8 mg/dL (8.4-10.2); CREATININE, SERUM 1.32 mg/dL (0.72-1.25); POTASSIUM 4.2 mmol/L (3.5-5.1)
[2022-07-10] MEDS: INSULIN REGULAR, HUMAN 100 UNIT/1 ML SQ SCH (08:00)
[2022-07-10 08:03] VITALS: BP 109/62
[2022-07-10 08:05] VITALS: BP 109/62
[2022-07-10] MEDS ORDERED: HYDRALAZINE HCL25 MG PO ×2 (08:46→09:08)
[2022-07-10] MEDS: APIXABAN 5 MG TABLET PO SCH (09:02)
[2022-07-10] MEDS: HYDRALAZINE HCL 25 MG TAB PO SCH (09:02)
[2022-07-10] MEDS: FAMOTIDINE 20 MG TAB PO SCH (09:03)
[2022-07-10] MEDS ORDERED: ELIQUIS5 MG PO (09:07)
== END 2022-07-10 09:37 | disposition home or self-care (01) | DRG 300 ==
LOC: ER 09:30 → ERHOLD 11:12 → MED/SURG3 15:27
PROVIDERS: ADMIT Internal Medicine; ATTEND Internal Medicine
DX: I82.411 Acute embolism and thrombosis of right femoral vein (principal); N17.9 Acute kidney failure, unspecified; Z68.42 Body mass index [BMI] 45.0-49.9, adult; I82.431 Acute embolism and thrombosis of right popliteal vein; I10 Essential (primary) hypertension; E11.9 Type 2 diabetes mellitus without complications; D64.9 Anemia, unspecified; Z90.79 Acquired absence of other genital organ(s); Z85.9 Personal history of malignant neoplasm, unspecified; Z20.822 Contact with and (suspected) exposure to COVID-19; E66.01 Morbid (severe) obesity due to excess calories; Z79.4 Long term (current) use of insulin
CPT/HCPCS: 0223U; 36415; 80048; 80053; 82550; 82553; 82948; 83540; 84466; 84484; 85025; 85610; 85730; 93306; 93926; 93971; 94799; 99284; J1644; J1650; J1815; J1817; J2270; J2405; J7030